=== PATIENT | male | born 1990 | race Caucasian/White ===

== ENCOUNTER 2018-01-01 00:14 | Day surgery (SDC) | payer OTHER ==
[2018-01-01 00:48] LABS: BILIRUBIN,URINE NEGATIVE (NEGATIVE); GLUCOSE, URINE (UA) NEGATIVE (NEGATIVE); KETONES,URINE (UA) NEGATIVE (NEGATIVE); LEUKOCYTE ESTERASE, URINE NEGATIVE (NEGATIVE); NITRITE,URINE POSITIVE (NEGATIVE); OCCULT BLOOD,URINE NEGATIVE (NEGATIVE); PROTEIN,URINE NEGATIVE (NEGATIVE); UROBILINOGEN,URINE 0.2 (NORMAL) E.U./dL (NORMAL)
[2018-01-01 01:02] LABS: AMORPHOUS SEDIMENT,UR Few /LPF; BACTERIA,URINE Few /HPF (None Seen); CLARITY,URINE SL. CLOUDY (CLEAR); MUCUS,URINE Few Strands; RBC,URINE None Seen /HPF (0-5); SQUAMOUS EPITHELIAL CELL,UR RARE Squamous (<= Few)
[2018-01-01 01:05] LABS: BASOPHILS % (AUTO) 0.4 %; EOSINOPHILS % (AUTO) 0.3 %; LYMPHOCYTES # (AUTO) 1.5 10^3/uL (1.5-3.5); LYMPHOCYTES % (AUTO) 13.4 %; MEAN CORPUSCULAR HEMOGLOBIN 28.9 pg (27.0-31.0); MEAN CORPUSCULAR HGB CONC 33.8 g/dL (32.0-36.0); MEAN CORPUSCULAR VOLUME 85.4 fL (80.0-94.0); MEAN PLATELET VOLUME 8.3 fL (7.4-11.4); MONOCYTES # (AUTO) 0.4 10^3/uL (0.0-1.0); MONOCYTES % (AUTO) 3.9 %; NEUTROPHILS # (AUTO) 9.5 10^3/uL (1.5-6.6); PLT - PLATELET COUNT 208 10^3/uL (130-450); RED BLOOD COUNT 5.19 10^6/uL (4.70-6.10); RED CELL DISTRIBUTION WIDTH 12.5 % (12.0-15.0); WHITE BLOOD COUNT 11.5 x10^3/uL (4.8-10.8)
[2018-01-01 01:12] LABS: ALBUMIN 4.3 g/dL (3.2-5.5); ALBUMIN/GLOBULIN RATIO 1.5 (1.0-2.2); CREATININE 0.8 mg/dL (0.6-1.2); TOTAL PROTEIN 7.2 g/dL (6.7-8.2)
--- NOTE | 2018-01-01 01:12 | ED Physician Documentation ---
PD HPI ABD PAIN - Stated complaint Stated Complaint: ABD PX - Chief complaint Chief Complaint: Abd Pain - History obtained from History obtained from: Patient - History of Present Illness Timing - onset: Enter time (17:00), Today Timing - duration: Hours Timing - details: Gradual onset, Constant, Waxing and waning Pain level now: 6 Quality: Pain Location: Periumbilical Radiation: Other (no radiation) Improved by: Laying still Worsened by: Moving Associated symptoms: Nausea. No: Fever, Vomiting Similar symptoms before: Has not had sx before Recently seen: Not recently seen Review of Systems Constitutional: denies: Fever, Chills, Sweats Cardiac: reports: Reviewed and negative Respiratory: reports: Reviewed and negative GI: reports: Abdominal Pain, Nausea. denies: Vomiting, Constipation, Diarrhea : denies: Dysuria, Frequency Skin: reports: Reviewed and negative Musculoskeletal: denies: Back pain Neurologic: reports: Reviewed and negative PD PAST MEDICAL HISTORY - Past Medical History Past Medical History: Yes : Kidney stones - Past Surgical History Past Surgical History: No - Present Medications Home Medications: Ambulatory Orders Medication Instructions Recorded Confirmed No Known Home Medications [No 01/01/18 01/01/18 Known Home Medications] - Allergies Allergies/Adverse Reactions: Allergies Allergy/AdvReac Type Severity Reaction Status Date / Time No Known Drug Allergies Allergy Verified 01/01/18 00:27 - Social History Does the pt smoke?: No Smoking Status: Never smoker Does the pt drink ETOH?: Yes Does the pt have substance abuse?: No - Immunizations Immunizations are current?: Yes - POLST Patient has POLST: No PD ED PE NORMAL - Vitals Vital signs reviewed: Yes - General General: Alert and oriented X 3, No acute distress, Well developed/nourished - HEENT HEENT: Moist mucous membranes - Neck Neck: Supple, no meningeal sign - Cardiac Cardiac: RRR, No murmur - Respiratory Respiratory: No respiratory distress, Clear bilaterally - Abdomen Abdomen: Normal bowel sounds, Soft, Non distended - Back Back: No CVA TTP - Derm Derm: Normal color, Warm and dry PD ED PE EXPANDED - Abdomen Abdomen: Tender to palpation (RLQ). No: Rebound, Guarding Results - Vitals Vitals: Vital Signs - 24 hr 01/01/18 01/01/18 01/01/18 00:25 03:55 07:23 Temperature 36.8 C 36.4 C L 36.8 C Heart Rate 79 71 55 L Respiratory 18 12 14 Rate Blood Pressure 137/88 H 125/77 123/81 H O2 Saturation 98 99 97 01/01/18 09:50 Temperature 37.2 C Heart Rate 47 L Respiratory 14 Rate Blood Pressure 126/75 O2 Saturation 98 Oxygen O2 Source Room air - Labs Labs: Laboratory Tests 01/01/18 01/01/18 01/01/18 00:40 00:50 00:50 WBC 11.5 H RBC 5.19 Hgb 15.0 Hct 44.3 MCV 85.4 MCH 28.9 MCHC 33.8 RDW 12.5 Plt Count 208 MPV 8.3 Neut # 9.5 H Lymph # 1.5 [place] # 0.4 Eos # 0.0 Baso # 0.0 Absolute Nucleated RBC 0.00 Nucleated RBC % 0.0 Sodium 138 Potassium 3.6 Chloride 103 Carbon Dioxide 27 Anion Gap 8.0 BUN 14 Creatinine 0.8 Estimated GFR (MDRD) 116 Glucose 120 H Calcium 9.8 Total Bilirubin 1.0 AST 22 ALT 20 Alkaline Phosphatase 85 Total Protein 7.2 Albumin 4.3 Globulin 2.9 Albumin/Globulin Ratio 1.5 Lipase 18 L Urine Color LT. YELLOW Urine Clarity SL. CLOUDY Urine pH 7.0 Ur Specific [place] 1.015 Urine Protein NEGATIVE Urine Glucose (UA) NEGATIVE Urine Ketones NEGATIVE Urine Occult Blood NEGATIVE Urine Nitrite POSITIVE H Urine Bilirubin NEGATIVE Urine Urobilinogen 0.2 (NORMAL) Ur Leukocyte Esterase NEGATIVE Urine RBC None Seen Urine WBC 0-3 Ur Squamous Epith Cells RARE Squamous Amorphous Sediment Few Urine Bacteria Few Urine Mucus Few Strands Ur Microscopic Review INDICATED Urine Culture Comments INDICATED - Rads (name of study) CT A/P Radiology: Prelim report reviewed, See rad report PD MEDICAL DECISION MAKING - ED course Complexity details: reviewed results, re-evaluated patient, considered differential, d/w patient ED course: D/W Dr. Duong, recommends Zosyn IV and he will take patient to OR later this morning. On reevaluation, after tests resulted, patient was in NAD and reported good pain relief after IV morphine (4mg IV x 1 dose) Departure - Departure Disposition: ED Transfer to [facility] Clinical Impression: Appendicitis Qualifiers: Appendicitis type: acute appendicitis Acute appendicitis type: with localized peritonitis Qualified Code(s): K35.3 - Acute appendicitis with localized peritonitis Condition: Good
[2018-01-01 01:26] LABS: CALCIUM 9.8 mg/dL (8.5-10.3)
[2018-01-01] MEDS ORDERED: MORPHINE 2 MG/ML SYRINGE IVP STA (01:27)
[2018-01-01] MEDS ORDERED: ONDANSETRON 4 MG/2 ML VIAL IVP STA (01:27)
[2018-01-01] MEDS ORDERED: SODIUM CHLORIDE 0.9% 1,000 ML IV STA (01:27)
[2018-01-01] MEDS ORDERED: IOPAMIDOL-300 100 ML VIAL ONE (02:36)
[2018-01-01] MEDS ORDERED: IOPAMIDOL-300 100 ML VIAL IVP ONE (02:56)
--- NOTE | 2018-01-01 03:22 | CT Preliminary Report ---
Exam: CT ABDOMEN/PELVIS W/ IMPRESSION: Acute appendicitis without apparent complication. [facility] SITE ID: [id number]
--- NOTE | 2018-01-01 03:34 | CT Report ---
EXAM: CT ABDOMEN AND PELVIS EXAM DATE: 01/01/2018 02:57 AM. CLINICAL HISTORY: Abdominal pain. COMPARISONS: None. TECHNIQUE: Routine helical CT imaging was performed through the abdomen and pelvis. IV contrast: Yes . Enteric contrast: No . Reconstructions: Coronal and sagittal. In accordance with CT protocol optimization, one or more of the following dose reduction techniques w ere utilized for this exam: automated exposure control, adjustment of mA and/or KV based on patient s ize, or use of iterative reconstructive technique. FINDINGS: Lung Bases: Unremarkable. Liver: Unremarkable. No suspicious masses. Gallbladder/Bile Ducts: Unremarkable. Spleen: Unremarkable. Pancreas: Unremarkable. Adrenal Glands: Unremarkable. Kidneys: Unremarkable. No suspicious masses or hydronephrosis. Peritoneal Cavity/Bowel: Abnormal inflamed appendix is best visualized on axial images 53 through 63 anterior to the sacrum with a maximum diameter of 10 mm and mild surrounding inflammatory changes. No gross perforation or abscess. Bowel otherwise appears unremarkable with exception of moderate stoo l burden. Pelvic Organs: Bladder and prostate appear unremarkable. Vasculature: No aneurysms or other significant abnormality. Bones: No significant abnormality. Other: None. IMPRESSION: Acute appendicitis without apparent complication. [facility] Referring Provider Line: [phone] SITE ID: [id number]
[2018-01-01] MEDS ORDERED: PIPERACILLIN/TAZOBACTAM 3.375 GM in SODIUM CHLORIDE 0.9% MINIBAG 100 ML IV STA ×2 (04:06→09:01)
--- NOTE | 2018-01-01 10:25 | CONSULTATION NOTE ---
Referring Provider Name of Referring Provider:: Dr. Shemar Art Consult Date: 01/01/18 Chief Complaint - Chief Complaint Chief Complaint: Right lower quadrant abdominal pain History of Present Illness - Admitted From Admitted From:: NOT admitted - outpatient - History Obtained From Records Reviewed: Yes History obtained from: Patient and chart Exam Limitations: None - History of Present Illness HPI Comment/Other: Dr. Shemar Art asked to evaluate this very pleasant 27-year-old male for a less than 24-hour history of epigastric pain which then localized to the right lower quadrant. It was associated with nausea but no vomiting. The patient is relatively anorectic. The symptoms started at 5:00 last night and the patient was not terribly hungry. He thought it might have been something that he ate. He went to bed early around 8 or 9 thinking that he would "sleep it off." His states that he was tossing and turning and clearly and pains around midnight the came to the emergency department here [facility]. Patient was evaluated by Dr. Shemar Art who quickly determined that this is likely appendicitis and ordered blood work as well as a CT scan which both of which were confirmatory. 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 : reports: Kidney stones HEENT: reports: None Psych: reports: None Musculoskeletal: reports: None Derm: reports: None MRSA Hx?: No - POLST Patient has POLST: No Meds/Allgy - Home Medications Home Medications: Ambulatory Orders Medication Instructions Recorded Confirmed No Known Home Medications [No 01/01/18 01/01/18 Known Home Medications] - Allergies Allergies/Adverse Reactions: Allergies Allergy/AdvReac Type Severity Reaction Status Date / Time No Known Drug Allergies Allergy Verified 01/01/18 00:27 Review of Systems - Constitutional Constitutional: denies: Fever, Chills, Malaise - Ears, Nose & Throat Ears, Nose & Throat: denies: Ear pain - Cardiovascular Cariovascular: denies: Irregular heart rate, Palpitations, Chest pain - Respiratory Respiratory: denies: Cough, Sputum production, Wheezing - Gastrointestinal Gastrointestinal: reports: Abdominal pain, Nausea. denies: Rectal bleeding, Black stools, Bloody stools, Vomiting, Bile emesis, Kanu blood emesis - Genitourinary Genitourinary: denies: Dysuria - Neurological Neurological: denies: General weakness, Focal weakness Exam - Vital Signs Reviewed Vital Signs: Yes Vital Signs: Vital Signs x48h Temp Pulse Resp BP Pulse Ox 01/01/18 09:50 37.2 C 47 L 14 126/75 98 01/01/18 07:23 36.8 C 55 L 14 123/81 H 97 01/01/18 03:55 36.4 C L 71 12 125/77 99 - Physical Exam General Appearance: positive: No acute distress (The 4 mg of morphine worked well.) Eyes Bilateral: positive: No lid inflammation, Conjunctivae nml, No scleral icterus ENT: positive: Dry mucous membranes Neck: positive: Trachea midline Respiratory: positive: Chest non-tender, No respiratory distress Cardiovascular: positive: Regular rate & rhythm Abdomen: positive: Tenderness (At McBurneys point.) Skin: positive: Color nml Extremities: positive: Non-tender, Full ROM, Nml appearance Neurologic/Psychiatric: positive: Oriented x3 Conclusion/Plan - Diagnosis Diagnosis: Acute nonperforated appendicitis - Plan Plan: Laparoscopic appendectomy, possible open appendectomy. The indications, procedure, alternatives including no surgery, possible risks including infection (deep or superficial), bleeding requiring transfusion (with all of its risks), and were fully explained to the patient and all questions answered. I also explained the pathophysiology. I explained that following the surgery I did not want him lifting anything over 15 pounds for 6 weeks to allow for optimal healing and to decrease the likelihood that a hernia would occur. All questions were fully answered. Verbal and written consent was obtained. The patient, in preparation for surgery will be nothing by mouth, and receive 3.375 g of Zosyn with induction. I asked him to contact me with any surgical questions and his concerns and he stated that he would. I asked him to let me know if there is any way we can make his stay at [facility] more comfortable and he stated that he would let me know. The plan is to do this operation as an outpatient procedure and to discharge him home following the procedure. 45 minutes of [id number] time spent with the patient, over 80% in discussion and coordination of his care - Lab Results Lab results reviewed: Yes Fish Bones: 01/01/18 00:50 01/01/18 00:50 - Diagnostic Imaging Results Diagnostic Imaging Results: positive: Final report reviewed, Read independently
[2018-01-01] MEDS ORDERED: BUPIVACAINE 0.5%-EPI 1:200000 PF 30 ML VIAL ONE (10:43)
[2018-01-01] MEDS ORDERED: LACTATED RINGERS 1,000 ML IV ONE (10:44)
[2018-01-01] MEDS ORDERED: BUPIVACAINE 0.5%-EPI 1:200000 PF 30 ML VIAL SUBQ ONE (11:07)
[2018-01-01] MEDS ORDERED: ROCURONIUM 50 MG/5 ML VIAL IVP ONE (11:18)
[2018-01-01] MEDS ORDERED: fentaNYL 100 MCG/2 ML VIAL IVP ONE (11:18)
[2018-01-01] MEDS ORDERED: ONDANSETRON 4 MG/2 ML VIAL IVP ONE (11:18)
[2018-01-01] MEDS ORDERED: KETOROLAC 30 MG/ML VIAL IVP ONE (11:18)
[2018-01-01] MEDS ORDERED: LIDOCAINE-MPF 2% 5 ML VIAL IM ONE (11:18)
[2018-01-01] MEDS ORDERED: PROPOFOL 200 MG/20 ML VIAL IVP ONE (11:18)
--- NOTE | 2018-01-01 11:54 | OPERATIVE REPORT ---
Operative Report - General Procedure Date: 01/01/18 Planned Procedure: Laparoscopic appendectomy Pre-Op Diagnosis: Acute appendicitis Procedure Performed: Laparoscopic appendectomy and umbilical herniorrhaphy Post Op Diagnosis: Acute nonperforated appendicitis and umbilical hernia - Procedure Note Primary Surgeon: Bill Duong MD Anesthesia Provider: Bill Evans MD Anesthesia Technique: General ET tube, Local (30 mL half percent Marcaine) IV Fluids (mL): 600 Estimated Blood Loss (mL): 5 (less than) Complications: None. - Other Other Information/Narrative: OPERATIVE DESCRIPTION/REPORT: After verbal and written informed consent was obtained detailing the risks of infection, bleeding requiring transfusion with its risks, and , and after I met with the patient confirming the surgery and the site of the surgery, the patient was brought to the operative suite and placed supine on the operating table. Great care was taken to avoid pressure points to prevent pressure necrosis or nerve injury. Monitoring devices were applied along with TEDs and pneumatic compressive stockings (to prevent DVT). The patient received preoperative antibiotics for surgical prophylaxis. Dr. Bill Evans sedated and anesthetized the patient for the entire procedure. The patient was prepped and draped in the usual sterile manner. With the patient draped my initials were clearly visible. A "time in" then confirmed that the patient was identified with 3 identifiers (name, date and medical record number), the history and physical was in the chart, the signed consent confirming the procedure was in the chart, the patient was in the correct position, the aforementioned prophylactic measures were in place or given, we had the correct personnel and equipment to complete the procedure and that anesthesia, surgery and nursing were given an opportunity to express any concerns. With the agreement of everyone in the room, we proceeded with the operation. A 2 cm umbilical midline incision was made. The fascia was then cleared of subcutaneous tissue using a tonsil clamp. A small umbilical hernia was encountered with fat coming up through. This was widened with a Maritza to allow placement of my port with the plan of repairing it on the way out.. A 12 mm blunt tipped balloon tipped Genna port was placed into the abdomen and the balloon inflated to keep it in place. The pneumoperitoneum was then established using carbon dioxide insufflation to a steady state pressure of 15 mmHg. Two additional 5 mm ports were placed in the midline above and below the umbilicus. The patient was then rotated slightly to their left and slightly head down ( Trendelenberg). The appendix was clearly identified and noted to be thickened and clearly consistent with acute appendicitis. It was a simple matter to grasp the end of the appendix and lift it revealing the base of the appendix where it was draining into the cecum. The base of the appendix and mesentery were then stapled and transected using a laparoscopic vascular stapler. Visualization of the staple line revealed absolutely no bleeding or leak of bowel contents. The appendix was then place into an endopouch for the remainder of the case. The patient was then rotated to lie flat. The fascia and skin were then injected with the 30 cc of % marcaine for pain control. The insufflation was released and the ports removed. With the removal of the umbilical port the Endopouch containing the appendix was also removed. The fascial defect was then approximated using a figure of 8 0- Vicryl suture thus repairing the umbilical hernia. The skin incisions were approximated with 4-0 Monocryl in a subcuticular fashion. The surgical prep was removed, the skin was prepped with benzoin and steristrips were applied. A dressing was applied. At this point a time out was performed that confirmed that all the counts were correct, the procedure that was performed, the blood loss, the urine output, the IV fluids administered, and the patients condition. Having tolerated the procedure well, the patient was subsequently extubated and taken to recovery room in good and stable condition. Dragon disclaimer: This document was created in part using voice recognition technology. Because of the inherent limitations of the system ([employer] Dictate user manual states that the licensee understands that speech recognition is a statistical process and that recognition errors are inherent in the process), occasional same sounding word substitutions and grammatical errors do occur and persist despite proofreading. Please read this document for context.
[2018-01-01] MEDS: HYDROmorphone 1 MG/ML CARPUJECT ONE ×2 (12:07→12:13)
[2018-01-01 13:07] VITALS: BP 128/75
[2018-01-01] MEDS ORDERED: ONDANSETRON ODT 4 MG TABLET ONE (13:25)
== END 2018-01-01 08:46 | disposition home or self-care (01) ==
LOC: ED 00:14 → SDS 08:45
PROVIDERS: ATTEND Surgery
PROC: 0DTJ4ZZ Resection of Appendix, Percutaneous Endoscopic Approach (ICD-10-PCS; principal; 2018-01-01 10:30)
DX: K35.80 Unspecified acute appendicitis (principal); K42.9 Umbilical hernia without obstruction or gangrene
CPT/HCPCS: 36415; 44970; 74177; 80053; 81001; 83690; 85025; 87086; 96361; 96365; 96375; 99284; J1170; J2270; J7120; Q0162; Q9967; 81003; 88304

== ENCOUNTER 2018-10-15 19:30 | Emergency (ER) | payer OTHER ==
[2018-10-15] MEDS ORDERED: ACETAMINOPHEN 325 MG TABLET PO STA (19:37)
[2018-10-15] MEDS ORDERED: DEXAMETHASONE 10 MG/ML VIAL PO STA (20:10)
--- NOTE | 2018-10-15 20:12 | ED Physician Documentation ---
PD HPI URI - Stated complaint Stated Complaint: FEVER/COUGH - Chief complaint Chief Complaint: Resp - History obtained from History obtained from: Patient - History of Present Illness Timing - onset: How many days ago (5) Timing duration: Days (5) Timing details: Abrupt onset, Still present Associated symptoms: Fever, Chills, Sweats, Nasal congestion, Rhinorrhea, Productive cough Contributing factors: Sick contact Improves by: Rest, Medication Worsened by: Activity Similar symptoms before: Has not had sx before Recently seen: Not recently seen Review of Systems Constitutional: reports: Fever, Chills, Myalgias, Fatigue Eyes: denies: Decreased vision Ears: reports: Other (fullness in the right ear). denies: Ear pain Nose: reports: Rhinorrhea / runny nose, Congestion Throat: denies: Sore throat Cardiac: denies: Chest pain / pressure, Palpitations, Pedal edema, Calf pain Respiratory: reports: Cough. 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 HEENT: None Psych: None Musculoskeletal: None Derm: None - Past Surgical History Past Surgical History: Yes General: Appendectomy - Present Medications Home Medications: Ambulatory Orders Medication Instructions Recorded Confirmed No Known Home Medications 01/01/18 10/15/18 - Allergies Allergies/Adverse Reactions: Allergies Allergy/AdvReac Type Severity Reaction Status Date / Time No Known Drug Allergies Allergy Verified 10/15/18 19:35 - Social History Does the pt smoke?: No Smoking Status: Never smoker Does the pt drink ETOH?: Yes Does the pt have substance abuse?: No - Immunizations Immunizations are current?: Yes - POLST Patient has POLST: No PD ED PE NORMAL - Vitals Vital signs reviewed: Yes (febrile tachy and hypertensive ) - General General: Alert and oriented X 3, No acute distress, Well developed/nourished - HEENT HEENT: Atraumatic, PERRL, EOMI, Ears normal, Moist mucous membranes, Pharynx benign, Dentition benign - Neck Neck: Supple, no meningeal sign, No bony TTP - Cardiac Cardiac: No murmur, Other (tachy ) - Respiratory Respiratory: No respiratory distress, Clear bilaterally - Abdomen Abdomen: Soft, Non tender - Back Back: No CVA TTP, No spinal TTP - Derm Derm: Normal color, Warm and dry, No rash - Extremities Extremities: No deformity, No edema - Neuro Neuro: Alert and oriented X 3, liquid yeast supervisor 2-12 intact, No motor deficit, No sensory deficit, Normal speech Eye Opening: Spontaneous Motor: Obeys Commands Verbal: Oriented GCS Score: 15 - Psych Psych: Normal mood, Normal affect Results - Vitals Vitals: Vital Signs - 24 hr 10/15/18 19:31 Temperature 39.1 C H Heart Rate 115 H Respiratory 18 Rate Blood Pressure 131/92 H O2 Saturation 95 Oxygen O2 Source Room air - Labs Labs: Laboratory Tests 10/15/18 19:43 Influenza A (Rapid) Negative Influenza B (Rapid) Negative - Rads (name of study) chest 2 view Radiology: Prelim report reviewed, EMP read indepedently, See rad report PD MEDICAL DECISION MAKING - ED course Complexity details: reviewed results, re-evaluated patient, considered differential, d/w patient ED course: 27-year-old male with cough congestion fever productive of some sputum has a benign physical examination and his influenza is negative. He has been sick for about 5-6 days. I suspect he may be ending the nearing the end of his illness. Departure - Departure Disposition: 01 Home, Self Care Clinical Impression: Upper respiratory tract infection Qualifiers: URI type: unspecified viral URI Qualified Code(s): J06.9 - Acute upper respiratory infection, unspecified Condition: Stable Instructions: ED Upper Resp Infec No Abx Tx Follow-Up: [facility] [Provider Group]
[2018-10-15] MEDS ORDERED: CHERRY SYRUP 10 ML UDC PO ONE (20:29)
--- NOTE | 2018-10-15 20:48 | XRAY Report ---
Reason: fever, cough Procedure Date: 10/15/2018 Accession Number: [id number] / [id number] Procedure: XR - Chest 2 View X-Ray CPT Code: 33324 FULL RESULT: EXAM: CHEST RADIOGRAPHY EXAM DATE: 10/15/2018 08:19 PM. CLINICAL HISTORY: Fever, cough. COMPARISON: None. TECHNIQUE: 2 views. FINDINGS: Lungs/Pleura: No dense consolidation. No large effusion or pneumothorax. No pulmonary edema. Calcified granuloma at the left apex. Mediastinum: Heart and mediastinal contours are unremarkable. Other: None. IMPRESSION: No acute radiographic pulmonary abnormalities. [facility]
[2018-10-15 21:17] VITALS: BP 111/73
== END 2018-10-15 21:21 | disposition home or self-care (01) ==
LOC: ED 19:30
DX: J06.9 Acute upper respiratory infection, unspecified (principal)
CPT/HCPCS: 71046; 87275; 87276; 99282; 99283; A9270